=== PATIENT | female | born 1985 | race Caucasian/White ===

== ENCOUNTER → 2016-08-20 | Outpatient (CLI) | payer BC ==
[2016-08-20 10:12] VITALS: BP 104/70
== END ==
LOC: MHUC 09:48
PROVIDERS: ATTEND Physician Assistant Medical
DX: J02.0 Streptococcal pharyngitis (principal)
CPT/HCPCS: 87880; 99213

== ENCOUNTER → 2016-11-22 | Outpatient (REF) | payer BC ==
[~2016-11-22] MED LIST: AMOX1TAB12 PO
== END ==
LOC: LAB 12:37
PROVIDERS: ATTEND Family Medicine
DX: J35.3 Hypertrophy of tonsils with hypertrophy of adenoids (principal); J35.01 Chronic tonsillitis
CPT/HCPCS: 85610; 85730